=== PATIENT | female | born 1990 | race African-American/Black ===

== ENCOUNTER 2024-02-19 10:28 | Emergency (ER) | payer OTHER ==
[~2024-02-19] VITALS: Ht 162.6 cm; Wt 68.2 kg
[2024-02-19 10:37] VITALS: BP 137/96; TEMP 98.1
[2024-02-19 11:12] VITALS: PULSE 78
== END 2024-02-19 11:12 | disposition home or self-care (01) ==
LOC: COL.ER 10:28
DX: J02.9 Acute pharyngitis, unspecified (principal)